=== PATIENT | female | born 2000 | race Two or more races ===

== ENCOUNTER 2024-08-15 10:30 | Emergency (ER) | payer MEDICAID, SELFPAY ==
[2024-08-15 10:51] VITALS: BP 122/71; PULSE 100; RESP 19; TEMP 36.9; O2SAT 98; BMI 21.7
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
== END 2024-08-15 11:48 | disposition home or self-care (01) ==
LOC: SERX 11:18
PROVIDERS: Emergency Provider Emergency Medicine; PCP Family Medicine
DX: S13.4XXA Sprain of ligaments of cervical spine, initial encounter (principal); V89.9XXA Person injured in unspecified vehicle accident, initial encounter
CPT/HCPCS: 99281

== ENCOUNTER 2025-04-13 16:12 | Emergency (ER) | payer MEDICAID, SELFPAY ==
--- NOTE | 2025-04-13 16:15 | EKG_ITS ---
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
--- NOTE | 2025-04-13 16:19 | PD.EDCHEST ---
ED Chest Pain RME/HPI General Chief Complaint: Chest Pain Stated Complaint: CHEST PAIN / PRESSURE X TUESDAY Time Seen by Provider: 04/13/25 16:19 Arrival date/time: 04/13/25 16:12 Limitations: no limitations RME / HPI RME / HPI narrative: DR. SY MAIN ED EVALUATION: 24 year old female presents to the Emergency Department with complaint of mid chest pain onset 2 days. She states the pain is intermittent and lasts a few seconds; she reported 4-5 episodes of pain since yesterday. No trauma. No exertional pain. No nausea or vomiting. No other symptoms reported. PMHx: Denies any PMHx, surgeries, daily medications, or known allergies. Social Hx: No tobacco, alcohol, or substance use. Related Data Home Medications ?Medication ?Instructions ?Recorded ?Confirmed prenat.vits,ruby,evp-csqd-bvmob 1 tab PO QDAY 07/12/22 07/12/22 Previous Rx's ?Medication ?Instructions ?Recorded acetaminophen-caffeine 500 mg-65 1 tab PO Q6H PRN pain #30 tabs 10/17/23 mg tablet (Excedrin Tension Headache) ibuprofen 600 mg tablet 600 mg PO Q6H #30 tabs 10/17/23 ibuprofen 600 mg tablet 600 mg PO Q6H #30 tabs 08/15/24 Allergies Allergy/AdvReac Type Severity Reaction Status Date / Time No Known Allergies Allergy Verified 04/13/25 16:16 Review of Systems Review of Systems Systems Reviewed: All systems reviewed, normal except as documented Past Medical History Family History FAMILY HISTORY: Positive Family Respiratory Disorders (NEPHEWS), Family Cardiac Disorders (MOTHER-ME), Family Cancer (MOTHER-CERVICAL CANCER) and Family Surgery (MOTHER-THYROID SURGERY) Social History SMOKING STATUS: Never smoker SUBSTANCE USE: does not use ALCOHOL: Never ED Exam General Limitations: Present no limitations General appearance: Present alert and in no apparent distress Head Head exam: Present atraumatic, normocephalic and normal inspection Eye Eye exam: Present normal appearance, PERRL and EOMI ENT ENT exam: Present normal exam, normal oropharynx and mucous membranes moist Neck Neck exam: Present normal inspection, full ROM and trachea midline Chest Chest inspection: Present normal inspection and symmetric chest wall rise; Absent tenderness (no costochondritis) Respiratory Respiratory exam: Present normal lung sounds bilaterally Cardiovascular Cardiovascular exam: Present regular rate, normal rhythm and normal heart sounds Abdominal Exam Abdominal exam: Present soft and normal bowel sounds Extremities Exam Extremities exam: Present normal inspection and full ROM Back Exam Back exam: Present normal inspection and full ROM Neurological Exam Neurological exam: Present alert, oriented X3 and CN II-XII intact Psychiatric Psychiatric exam: Present normal affect and normal mood Skin Skin exam: Present warm, dry, intact and normal color Course Quality Measures none Orders Category Date Time Status EKG (ED ONLY) *Do not use* NOW Care 04/13/25 16:25 Completed EKG (ED Only) Stat Exams 04/13/25 16:15 Draft EKG (ED Only) Stat Exams 04/13/25 16:25 Draft Troponin I Stat Lab 04/13/25 16:39 Completed Vital Signs Vital signs: Vital Signs Temperature 99 F 04/13/25 16:30 Pulse Rate 98 04/13/25 16:30 Respiratory Rate 18 04/13/25 16:30 Blood Pressure 127/84 04/13/25 16:30 Pulse Oximetry (%) 96 04/13/25 16:30 Oxygen Delivery Method Room Air 04/13/25 16:30 Chest Pain MDM Narrative MDM Narrative:: I, Angelina Kwon, am scribing for and in the presence of Dr. Sy. Troponin was negative. WBC is elevated likely viral disease and likely contributing to her chest pain. Patient advised to follow with her PCP in 2-3 days and get a cardiology referral. Patient data External records reviewed:: [facility] previous records Clinical information provided by:: patient Social determinants that could affect healthcare access:: none Patient has the following chronic illnesses:: Denies any PMHx, surgeries, daily medications, or known allergies. How is presenting disease/condition affected by chronic disease/condition?: no chronic disease Evaluation data The following diagnostics were reviewed and interpreted by me:: lab results, radiology exam(s) and EKG tracing(s) Lab and/or radiology exams considered but not ordered:: none Interpretation Summary: My interpretation: EKG performed at 1626 hours, sinus rhythm, rate 98, right bundle branch block, no STEMI Medications / Prescriptions Medications or Prescriptions considered but not ordered:: none Medication administrations:: see above if any Consultations Consultation(s) initiated? (list below): No Diagnosis Chest Pain Differential Diagnosis: fracture of rib, atypical chest pain, costochondritis and chest pain Most likely diagnosis given after review of the tests above:: Chest pain, uncertain cause Viral syndrome Right bundle branch block Admission Indicated Admission indicated?: not indicated Admission Request Was there a request for admission?: No Disposition Plan Disposition Plan: Discharge Discharge Attestation Discharge Attestation: The patient and all family members were given an opportunity to ask questions and understood the discharge instructions. Discharge instructions specifically effects, indications for sooner follow up or return to the emergency department, and the expected course of current diagnosis. Patient condition: Stable Discharge Plan Plan Patient Disposition: HOME (Self Care) Patient condition on transfer: Stable Prescriptions/Referrals Prescriptions/Med Rec: No Action Vitamin Tablet 1 tab PO QDAY Excedrin Tension Headache 500-65 mg tablet 1 tab PO Q6H PRN (Reason: pain) Qty: 30 0RF ibuprofen 600 mg tablet 600 mg PO Q6H Qty: 30 0RF ibuprofen 600 mg tablet 600 mg PO Q6H Qty: 30 0RF Referrals: Vicki Pineda [employer] [Primary Care Provider] - In 1 week Problem List Clinical Impression: Chest pain of uncertain etiology, Viral syndrome, Right bundle branch block Patient/Caregiver Discharge Instructions Additional Instructions: Please follow up with your PCP in 2-3 days and get a cardiology referral. Return to the Emergency Department as needed. Print Language: Turkmen Stand Alone Forms: Morena Award Info., Patient Portal Info Letter
--- NOTE | 2025-04-13 16:25 | EKG_ITS ---
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
[2025-04-13 16:30] VITALS: BP 127/84; PULSE 98; RESP 18; TEMP 37.2; O2SAT 96; BMI 21.4
[2025-04-13 17:23] LABS: Troponin I < 0.002 ng/mL (0.0-0.045)
[2025-04-13 17:29] VITALS: BP 116/81; PULSE 94; RESP 16; TEMP 37.2; O2SAT 100
== END 2025-04-13 17:47 | disposition home or self-care (01) ==
PROVIDERS: Nurse Practitioner Primary Care; Emergency Provider Family Medicine; PCP Nurse Practitioner Family
DX: B34.9 Viral infection, unspecified (principal); I45.10 Unspecified right bundle-branch block; R07.9 Chest pain, unspecified
CPT/HCPCS: 36415; 80053; 84484; 84703; 85025; 93005; 99283